=== PATIENT | female | born 1960 | race Caucasian/White ===

== ENCOUNTER 2020-02-23 15:24 | Emergency (ER) | payer MEDICARE, MEDICAID ==
[~2020-02-23] VITALS: Ht 154.9 cm; Wt 56.8 kg
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
--- NOTE | 2020-02-23 16:43 | NUR ---
PT TO CT AT THIS TIME, VSS
[2020-02-23 17:04] LABS: ALANINE AMINOTRANSFERASE 17 U/L (12-78); ALBUMIN 3.7 g/dL (3.4-5.0); ANION GAP 8 mmol/L (5-15); CALCIUM 9.4 mg/dL (8.5-10.1); CHLORIDE 110 mmol/L (98-107); CREATININE 0.71 mg/dL (0.55-1.02)
[2020-02-23 17:07] LABS: ALKALINE PHOSPHATASE 115 U/L (45-117); BILIRUBIN,TOTAL 0.3 mg/dL (0.2-1.0); TOTAL PROTEIN 7.9 g/dL (6.4-8.2)
[2020-02-23 17:08] LABS: BASOPHILS % (AUTO) 0 % (0-1); EOSINOPHILS % (AUTO) 0 % (1-7); LYMPHOCYTES % (AUTO) 7 % (22-44); MEAN CORPUSCULAR HGB CONC 32.9 g/dL (32.4-35.8); MEAN PLATELET VOLUME 7.6 fL (7.4-10.4); MONOCYTES % (AUTO) 6 % (2-9); NEUTROPHILS % (AUTO) 87 % (42-75); PLATELET COUNT 428 x10^3/uL (130-400); RED BLOOD COUNT 5.06 x10^6/uL (3.82-5.3); RED CELL DISTRIBUTION WIDTH 14.5 % (9.6-15.2)
[2020-02-23 17:51] LABS: MD SCAN
--- NOTE | 2020-02-23 18:19 | NUR ---
Porter childs in EDM - 02/23/20 at 1821 by SHENA PT ASSISTED TO BR WITH PTS HOME WHEELCHAIR. PT NOW WITH C/O L ELBOW PAIN, PT STATES "I THINK I BROKE MY ELBOW WHEN I FELL" [place], DX ORDERED
--- NOTE | 2020-02-23 18:21 | NUR ---
PT ASSISTED TO BR WITH PTS HOME WHEELCHAIR. PT NOW WITH C/O L ELBOW PAIN, PT STATES "I THINK I BROKE MY ELBOW WHEN I FELL" ERMD UPDATED, DX ORDERED
--- NOTE | 2020-02-23 19:04 | NUR ---
REPORT RECEIVED FROM BENNIE PRAJAPATI
[2020-02-23 20:59] VITALS: BP 135/90
[2020-02-23] MEDS ORDERED: IBUPROFEN 200 MG TABLET PO ONE (21:00)
== END 2020-02-23 21:01 | disposition home or self-care (01) ==
LOC: ED 18:55
DX: G89.11 Acute pain due to trauma (principal); M25.522 Pain in left elbow; M25.562 Pain in left knee; G40.909 Epilepsy, unspecified, not intractable, without status epilepticus; X58.XXXA Exposure to other specified factors, initial encounter; Y93.89 Activity, other specified; Y92.89 Other specified places as the place of occurrence of the external cause; Y99.8 Other external cause status
CPT/HCPCS: 36415; 70450; 80053; 85025; 99285

== ENCOUNTER 2020-09-16 06:36 | Emergency (ER) | payer MEDICARE, MEDICAID ==
[~2020-09-16] VITALS: Ht 152.4 cm; Wt 55.0 kg
--- NOTE | 2020-09-16 06:49 | NUR ---
PT TO ROOM FROM TRIAGE, PT CHANGED INTO GOWN. MONITORS IN PLACE. CALL LIGHT WITHIN REACH, SZ PRECAUTIONS IN PLACE.
[2020-09-16] MEDS ORDERED: LEVETIRACETAM 500 MG TABLET PO SCH (07:00)
[2020-09-16] MEDS ORDERED: LEVETIRACETAM 500 MG TABLET ONE (07:00)
[2020-09-16 07:41] LABS: ANION GAP 11 mmol/L (5-15); CALCIUM 9.1 mg/dL (8.5-10.1); CHLORIDE 110 mmol/L (98-107); CREATININE 0.57 mg/dL (0.55-1.02)
[2020-09-16 07:52] VITALS: BP 111/78
--- NOTE | 2020-09-16 07:53 | NUR ---
PT SITTING ON GURNEY WITH EYES CLOSED, RESPIRATIONS EVEN AND UNLABORED. NADN/VSS. CALL LIGHT WITHIN REACH. SZ PRECAUTIONS IN PLACE. PT AMBULATORY TO BR WITH WALKER.
--- NOTE | 2020-09-16 08:22 | NUR ---
Patient given discharge instructions and they have confirmed that they understand the instructions. Patient ambulatory with steady gait.
== END 2020-09-16 08:24 | disposition home or self-care (01) ==
LOC: ED 07:11
DX: Z00.00 Encounter for general adult medical examination without abnormal findings (principal); G40.909 Epilepsy, unspecified, not intractable, without status epilepticus; M06.9 Rheumatoid arthritis, unspecified
CPT/HCPCS: 36415; 80048; 93005; 99284